=== PATIENT | male | born 1990 | race Caucasian/White ===

== ENCOUNTER 2024-11-21 12:37 | Emergency (ER) | payer MEDICAID ==
[~2024-11-21] VITALS: Ht 167.6 cm; Wt 73.0 kg
[2024-11-21 13:26] LABS: BASOPHILS % 0.1 % (0.0-2.0); EOSINOPHILS % 4.2 % (0.0-5.0); HEMATOCRIT. 46.7 % (42.0-52.0); HEMOGLOBIN. 15.7 g/dL (14.0-18.0); LYMPHOCYTES % 8.8 % (20.0-50.0); MEAN CORPUSCULAR HEMOGLOBIN 31.1 pg (28.0-32.0); MEAN CORPUSCULAR HGB CONC 33.7 g/dL (31.0-37.0); MEAN CORPUSCULAR VOLUME 92.4 fL (80.0-94.0); MEAN PLATELET VOLUME 8.4 fl (7.4-10.4); MONOCYTES % 7.6 % (2.0-8.0); NEUTROPHILS % 79.3 % (40.0-76.0); PLATELET 261 x1000/uL (130-400); RED BLOOD CELL COUNT 5.06 mill/uL (4.7-6.1); RED CELL DISTRIBUTION WIDTH 13.5 % (11.6-14.6); WHITE BLOOD COUNT 10.8 x1000/uL (4.5-11.0)
[2024-11-21 13:38] LABS: CHLORIDE 103 mEq/L (98-107); POTASSIUM 3.9 mEq/L (3.5-5.1); SODIUM 141 mEq/L (136-145)
[2024-11-21 13:39] LABS: CARBON DIOXIDE 31 mEq/L (21-32)
[2024-11-21 13:44] LABS: GLUCOSE 103 mg/dL (70-105); UREA NITROGEN BLOOD 7 mg/dL (9-23)
[2024-11-21] MEDS ORDERED: ALBU18HF2 IH (19:12)
[2024-11-21] MEDS: DEXAMETHASONE 4MG/ML 1ML VIAL PO ONE (19:44)
[2024-11-21 20:08] VITALS: PULSE 92; RESP 20; O2SAT 96
[2024-11-21] MEDS: IPRATROPIUM/ALBUTEROL 0.5-3(2.5)MG/3ML NEB HHN ONE (20:08)
[2024-11-21 20:38] VITALS: BP 140/79; PULSE 93; RESP 20; TEMP 36.83628; O2SAT 98
== END 2024-11-21 20:48 | disposition home or self-care (01) ==
LOC: ER 12:37
DX: J45.901 Unspecified asthma with (acute) exacerbation (principal); B34.9 Viral infection, unspecified
CPT/HCPCS: 80048; 85025; 36415; 71045; 94640; 93005; 99285; J1100; Z7610 ×4